=== PATIENT | male | born 1955 | race Caucasian/White ===

== ENCOUNTER 2016-08-10 19:24 | Emergency (ER) | payer OTHER ==
[2016-08-10 20:00] VITALS: BP 119/57
--- NOTE | 2016-08-10 20:18 | UC ---
HPI Febrile Illness - History of Current Complaint Chief Complaint: UCGeneralIllness Time Seen by Provider: 08/10/16 20:11 Hx Obtained From: Patient Onset/Duration: Started Days Ago - 1, Worse Since - today Timing: Constant Initial Severity: Mild Current Severity: Moderate Associated Signs and Symptoms: Chills, Dysuria - with frequency and urgency., Nausea, Other: - sphenoid sinus pain. - Risk Factors Pseudomonas Risk Factors: Negative Serious Bacterial Infection Risk Factors: Negative - Allergy/Home Medications Allergies/Adverse Reactions: Allergies Allergy/AdvReac Type Severity Reaction Status Date / Time Ampicillin Allergy Rash Verified 08/10/16 20:00 Carbamazepine Allergy Rash Verified 08/10/16 20:00 MRI CONTRAINDICATED-PACEMAKER Allergy Severe Unknown Uncoded 08/10/16 20:00 Reaction Details Home Medications: Home Medications Gabapentin TAB(NF) [Neurontin 600 mg TAB(NF)] 600 mg PO DAILY 08/10/16 [History Confirmed 08/10/16] PMH/Surg Hx/FS Hx/Imm Hx Endocrine/Hematology History: Reports: Hx Thyroid Disease - HYPO Cardiovascular History: Reports: Hx Pacemaker/ICD - MARCH 2013 - Surgical History Surgery Procedure, Year, and Place: PACEMAKER 03/2013 Infectious Disease History: No Infectious Disease History: Denies: Traveled Outside the [place] in Last 30 Days - Family History Known Family History: Positive: Hypertension, Diabetes Negative: Cardiac Disease - Social History Occupation: Retired Lives: With Family Alcohol Use: Occasionally Substance Use Type: Reports: None Smoking Status (MU): Never Smoked Tobacco Type: Cigars Have You Smoked in the Last Year: No Review of Systems Constitutional: Fever, Chills Genitourinary: Frequency, Urgency Neurological: Headache All Other Systems Reviewed And Are Negative: Yes Physical Exam Triage Information Reviewed: Yes Appearance: No Pain Distress, Well-Nourished, Ill-Appearing Vital Signs: Initial Vital Signs Temp 101.1 F 08/10/16 19:48 Pulse 94 08/10/16 19:48 Resp 12 08/10/16 19:48 BP 119/57 08/10/16 19:48 Pulse Ox 96 08/10/16 19:48 Vital Signs Reviewed: Yes Eye Exam: Other ENT: Positive: Pharynx normal, TMs normal Neck exam: Normal Respiratory Exam: Normal Cardiovascular Exam: Normal Abdomen Description: Positive: Nontender, No Organomegaly, Soft Musculoskeletal Exam: Normal Neurological Exam: Normal Psychological Exam: Normal Skin Exam: Normal Course/Dx - Febrile Illness Differential Diagnoses: Abd. Infection, Bacteremia, Pyelonephritis - Diagnoses Clinic Provider Diagnoses: Acute prostatitis Discharge - Discharge Plan Condition: Stable Disposition: HOME Prescriptions: Phenazopyridine 200 mg (NF) [Pyridium 200 MG tab] 200 mg PO TID PRN #6 tab PRN Reason: Spasms - Bladder Sulfamethox/Trimethoprim DS* [Bactrim DS 800/160 TAB*] 1 tab PO BID #20 tab
[2016-08-10] MEDS ORDERED: Sulfamethox/Trimethoprim DS 800/160* TAB PO ONE (20:24)
[2016-08-10] MEDS ORDERED: Phenazopyridine TAB* 100 MG PO ONE (20:24)
[2016-08-10] MEDS: Ondansetron ODT TAB* 4 MG PO ONE (21:12)
== END 2016-08-10 21:18 | disposition home or self-care (01) ==
LOC: UCCORT 19:24
DX: N41.0 Acute prostatitis (principal); E03.9 Hypothyroidism, unspecified; Z95.0 Presence of cardiac pacemaker; Z88.1 Allergy status to other antibiotic agents; Z88.8 Allergy status to other drugs, medicaments and biological substances
CPT/HCPCS: 81003; 87086; 99213; A9270-GY; G0463

== ENCOUNTER 2017-08-21 07:37 | Emergency (ER) | payer OTHER ==
[2017-08-21 07:54] VITALS: BP 122/75
--- NOTE | 2017-08-21 08:01 | UC ---
Skin Complaint HPI - HPI Summary HPI Summary: PATIENT REMOVED A DEER TICK FROM HIS RIGHT UPPER THIGH AREA THIS MORNING. THINKS IT WAS BEEN ATTACHED FOR 36-48 HOURS. - History of Current Complaint Chief Complaint: UCGeneralIllness Time Seen by Provider: 08/21/17 07:54 Stated Complaint: TICK Hx Obtained From: Patient Onset Severity: Mild Current Severity: Mild Pain Intensity: 0 Pain Scale Used: 0-10 Numeric Location: Discrete - RIGHT GROIN Character: Redness Aggravating Factor(s): Nothing Alleviating Factor(s): Nothing Associated Signs & Symptoms: Positive: Negative - Allergy/Home Medications Allergies/Adverse Reactions: Allergies Allergy/AdvReac Type Severity Reaction Status Date / Time ampicillin Allergy Rash Verified 08/21/17 07:58 carbamazepine Allergy Rash Verified 08/21/17 07:58 MRI CONTRAINDICATED-PACEMAKER Allergy Severe Unknown Uncoded 08/21/17 07:54 Reaction Details environmental Allergy Congestion Uncoded 08/21/17 07:54 Review of Systems Constitutional: Negative Skin: Other - ERYTHEMA AT TICK BITE SITE Respiratory: Negative Cardiovascular: Negative Gastrointestinal: Negative All Other Systems Reviewed And Are Negative: Yes PMH/Surg Hx/FS Hx/Imm Hx - Additional Past Medical History Additional PMH: TRIGEMINAL NEURALGIA Endocrine History: Hypothyroidism Cardiovascular History: Cardiac Disease - PACEMAKER - Surgical History Surgical History: Yes Surgery Procedure, Year, and Place: PACEMAKER 03/2013 - Family History Known Family History: Positive: Diabetes Negative: Cardiac Disease, Hypertension - Social History Alcohol Use: Rare Substance Use Type: None Smoking Status (MU): Former Smoker Type: Cigars Have You Smoked in the Last Year: No Physical Exam Triage Information Reviewed: Yes Appearance: Well-Appearing, No Pain Distress, Well-Nourished Vital Signs: Initial Vital Signs Temp 97.5 F 08/21/17 07:48 Pulse 54 08/21/17 07:48 Resp 16 08/21/17 07:48 BP 122/75 08/21/17 07:48 Pulse Ox 100 08/21/17 07:48 Vital Signs Reviewed: Yes Eyes: Positive: Conjunctiva Clear ENT: Positive: Hearing grossly normal Neck: Positive: Supple Respiratory: Positive: No respiratory distress, No accessory muscle use Cardiovascular: Positive: Pulses Normal Abdomen Description: Positive: Soft Musculoskeletal: Positive: No Edema Neurological: Positive: Alert Psychological: Positive: Age Appropriate Behavior Skin: Positive: Other - 2CM AREA OF ERYTHEMA SURROUNDING TICK BITE SITE RIGHT UPPER THIGH. Course/Dx - Diagnoses Provider Diagnoses: TICK BITE, LYME PEP Discharge - Sign-Out/Discharge Documenting (check all that apply): Discharge/Admit/Transfer - Discharge Plan Condition: Stable Disposition: HOME Patient Education Materials: Tick Bite (ED) Referrals: Yash Bush MD [Primary Care Provider] - If Needed Additional Instructions: TICK BITE PROPHYLAXIS You received 200mg of doxycycline for prophylaxis against Lyme disease. The Infectious Disease Society of [place] (IDSA) does not generally recommend antimicrobial prophylaxis for prevention of Lyme disease after a recognized tick bite. However, in areas that are highly endemic for Lyme disease, a single dose of doxycycline may be offered to adult patients (200 mg) who are not and to children older than 8 years of age (4 mg/kg up to a maximum dose of 200 mg) when all of the following circumstances exist: CRITERIA FOR RECEIVING PROPHYLACTIC TREATMENT FOR LYME DISEASE 1) TICK ATTACHED FOR AT LEAST 36 HRS 2) TICK IS AN ADULT OR [place] DEER TICK 3) YOU LIVE IN AN AREA WHERE LYME DISEASE IS PREVALENT (i.e., [place], [place], [place], , [place] , [place], [place], [place], [place], [place], [place], [place], [place], [place]) 4) YOU HAVE NO CONTRAINDICATION TO THE MEDICATION (DOXYCYCLINE) 5) PROPHYLAXIS IS BEGUN WITHIN 72 HRS OF TICK REMOVAL YOUR CHANCES OF DEVELOPING LYME DISEASE ARE EXTREMELY SMALL. BE VIGILANT OF YOUR SYMPTOMS AND DON'T HESITATE TO GET SEEN AGAIN IF YOU DEVELOP UNEXPLAINED FEVER, HEADACHE, JOINT PAIN, BODY ACHES, RASH OR ANY OTHER CONCERNING SYMPTOMS. Antibiotic treatment following a tick bite is not recommended as a means to prevent anaplasmosis, babesiosis, ehrlichiosis, or [place] spotted fever. There is no evidence this practice is effective, and it may simply delay onset of disease. Instead, persons who experience a tick bite should be alert for symptoms suggestive of tickborne illness and consult a physician if fever, rash, or other symptoms of concern develop. - Billing Disposition and Condition Condition: STABLE Disposition: HOME
[2017-08-21] MEDS ORDERED: DOXYcycline CAP(*) 100 MG PO ONE (08:03)
== END 2017-08-21 08:12 | disposition home or self-care (01) ==
LOC: UCCORT 07:37
DX: S70.361A Insect bite (nonvenomous), right thigh, initial encounter (principal); Z88.0 Allergy status to penicillin; Z88.8 Allergy status to other drugs, medicaments and biological substances; Z91.048 Other nonmedicinal substance allergy status; Z87.891 Personal history of nicotine dependence; A69.20 Lyme disease, unspecified; W57.XXXA Bitten or stung by nonvenomous insect and other nonvenomous arthropods, initial encounter; Y92.9 Unspecified place or not applicable
CPT/HCPCS: 99212; A9270-GY; G0463

== ENCOUNTER 2018-08-19 10:08 | Emergency (ER) | payer MEDICARE, OTHER ==
--- OUTSIDE RECORDS SUMMARY | 2018-08-19 10:29 | XMS REPORT | Continuity of Care Document ---
:1955 External Reference #:[id number] Author Name Ruth Matute M.D. Address [address] [place] [address] Care Team Providers Name Role Phone Yash Bush MD Care Team Information Roll Icer Machine Unavailable Yash Bush MD Primary Care Physician Unavailable Payers Date Identification Numbers Payment Provider Subscriber Effective: 2018 Policy Number: [id number] Medicare Yo Oleary PayID: [id number] [address] [place] [address] Policy Number: [id number] Lifetime Benefit Solution Yo Oleary PayID: [id number] [address] [address] [place] [address] Family History Date Family Member(s) Observation Comments General Pacemaker Father Alive Father Colon Cancer Father Skin Cancer Father macular degeneration Father wears glasses Mother Dementia Mother due to Stroke () - age 88 Mother wore glasses First Son Alive First Son 33 First Son No Current Problems First Daughter Alive First Daughter 35 First Daughter No Current Problems First Brother Cancer in remission 10 years First Brother Alive First Sister Alive First Sister Cancer in remissision 15 years Second Sister Cancer Social History Type Date Description Comments Sex Unknown Marital Status 38 years Lives With Diet Patient follows no dietary restrictions Occupation Retired Design Draftsman Work Status Retired ADL's/IADL's Independent with all ADL's Tobacco Use Start: Unknown Never Smoked Cigarettes ETOH Use Drinks 6 Alcoholic Beverages Per Week ETOH Use Rarely consumes alcohol 08/05/18 Tobacco Use Start: Unknown Patient has never smoked Recreational Drug Use Never Used Drugs Smoking Status Reviewed: 07/29/18 Patient has never smoked Exercise Type/Frequency Exercises regularly Allergies, Adverse Reactions, Alerts Active Allergies Reaction Severity Comments Date Ampicillin Tegretol Amoxicillin 01/02/2016 Medications Active Medications SIG Qnty Indications Ordering Provider Date Levothyroxine Sodium po qd Unknown 137mcg Tablets Gabapentin take one tablet Unknown 600mg Tablets by mouth three times a day History Medications Ofloxacin 1 drop left 1units S05.02xA Jose Raul Smith, 12/17/2017 - (Ophthalmic) eye 3 times Unknown 0.3% daily for 3 Solution days Gabapentin 1 po as needed 90caps Unknown - 300mg 01/02/2016 Capsules Synthroid po qd Unknown - 100mcg Unknown Tablets Aspir-81 1 po qd 120tabs Unknown - 81mg Tablets Unknown DR Terbinafine HCL 1 by mouth Unknown - 250mg every day Unknown Tablets Vital Signs Date Vital Result Comment 08/05/2018 3:19pm BP Systolic 109 mmHg BP Diastolic 63 mmHg Body Temperature 96.9 F Tympanic Heart Rate 67 /min Respiratory Rate 16 /min Height 71 inches 5'11" Weight 156.00 lb BMI (Body Mass Index) 21.8 kg/m2 BSA (Body Surface Area) 1.90 m2 Garrison body weight in kilograms 78 kg O2 % BldC Oximetry 98 % Pain Level 0 04/06/2018 10:21am BP Systolic Sitting Left Arm 108 mmHg BP Diastolic Sitting Left Arm 60 mmHg Respiratory Rate 16 /min Height 71 inches 5'11" Weight 154.00 lb BMI (Body Mass Index) 21.5 kg/m2 BSA (Body Surface Area) 1.89 m2 Garrison body weight in kilograms 78 kg O2 Saturation Level with Exercise 97 % 12/22/2017 8:58am BP Systolic 129 mmHg BP Diastolic 94 mmHg Heart Rate 62 /min Height 71 inches 5'11" Weight 71.00 lb BMI (Body Mass Index) 9.9 kg/m2 BSA (Body Surface Area) 1.36 m2 Garrison body weight in kilograms 78 kg O2 % BldC Oximetry 99 % 03/20/2017 11:40am BP Systolic Sitting Left Arm 124 mmHg BP Diastolic Sitting Left Arm 76 mmHg Heart Rate 67 /min Respiratory Rate 14 /min Height 71 inches 5'11" 71 Weight 162.00 lb BMI (Body Mass Index) 22.6 kg/m2 BSA (Body Surface Area) 1.93 m2 Garrison body weight in kilograms 78 kg 11/06/2015 8:16am BP Systolic Sitting Right Arm 116 mmHg BP Diastolic Sitting Right Arm 78 mmHg Heart Rate 56 /min Respiratory Rate 16 /min Height 71 inches 5'11" 71 Weight 154.00 lb BMI (Body Mass Index) 21.5 kg/m2 BSA (Body Surface Area) 1.89 m2 11/03/2013 11:04am BP Systolic Sitting Right Arm 130 mmHg BP Diastolic Sitting Right Arm 72 mmHg Heart Rate 78 /min Respiratory Rate 16 /min Height 71 inches 5'11" 71 Weight 154.00 lb BMI (Body Mass Index) 21.5 kg/m2 BSA (Body Surface Area) 1.89 m2 04/27/2013 1:28pm BP Systolic Sitting Right Arm 104 mmHg BP Diastolic Sitting Right Arm 68 mmHg Heart Rate 65 /min Respiratory Rate 16 /min Height 71 inches 5'11" 71 Weight 164.00 lb BMI (Body Mass Index) 22.9 kg/m2 BSA (Body Surface Area) 1.94 m2 Results Test Date Facility Test Result H/L Range Note Urine Dipstick 08/05/2018 [facility] Ua Color Yelllow Yellow Ua Clarity Clear Clear Ua Leuko Negative Negative Ua Nitrite Negative Negative Ua Urobilinogen 0.2 0.2 - 1.0 E.U./dL Ua Protein Negative Negative Ua PH 6.0 Low 6.5-7.5 Ua Blood Negative Negative Ua Specific Johnson 1.030 1.010-1.030 Ua Ketones Negative Negative Ua Bilirubin Negative Negative Ua Glucose Negative Negative Lab Results 07/13/2018 N2N/CCD Import TSH 0.04 uIU/mL Low 0.35-4.94 1 Cholesterol 217 mg/dL High 50-199 Triglycerides 74 mg/dL 30-200 HDL 59 mg/dL 29-71 2 Chol/ HDL Ratio 3.7 ratio Low 4-6.7 VLDL 15 mg/dL 2-29 LDL (Calc) 143 mg/dL High 20-99 3 Lab Results 07/13/2018 N2N/CCD Import Cholesterol 217 mg/dL High 50-199 Triglycerides 74 mg/dL 30-200 HDL 59 mg/dL 29-71 4 Chol/ HDL Ratio 3.7 ratio Low 4-6.7 VLDL 15 mg/dL 2-29 LDL (Calc) 143 mg/dL High 20-99 5 Basic (BMP) 07/13/2018 N2N/CCD Import Sodium 142 mmol/L 135-146 6 Potassium 4.1 mmol/L 3.5-5.2 Chloride# 104 mmol/L 97-110 7 Carbon Dioxide 31 mmol/L 24-34 Glucose 97 mg/dL 70-105 BUN 13 mg/dL 6-26 Creatinine 0.9 mg/dL 0.5-1.4 Calcium 9.6 mg/dL 8.5-10.2 Non [place] Egfr >60 8 [place] Egfr >60 9 Anion Gap 7 mmol/L 5-15 10 CBC with Auto Diff-fcmg 07/13/2018 N2N/CCD Import WBC 5.7 K/uL 4.1-11 RBC 5.22 M/uL 4.6-6.1 Hemoglobin 15.0 gm/dL 13.5-18 Hematocrit 45.3 % 41-53 MCV 86.8 fL 80-97 MCH 28.8 pg 27-32 MCHC 33.2 g/dL 32-36 RDW 13.6 % 11.5-14.5 PLT Count 246 K/ul 140-400 MPV 9.1 FL 7.1-10.7 Neutrophil 47.0 % 35-75 Lymphocyte 42.5 % 16-52 Monocyte 8.3 % 2-10 Eosinophil 1.8 % 0-5 Basophil 0.4 % 0-4 Abs Neutrophils 2.7 K/uL 2.1-8 Abs Lymphocytes 2.4 K/uL 0.8-5.5 Abs Monocytes 0.5 K/uL 0.1-1 Abs Eosinophils 0.1 K/uL 0-0.5 Abs Basophils 0.0 K/uL 0-0.3 1 07/16 preOV 2 Per NCEP ATP III Guidelines: Results lower than 40 mg/dL are suggestive of increased risk for coronary artery disease. Results > or=to 60 mg/dL are considered a negative risk factor. 3 Per NCEP ATP III Guidelines: Normal Population <130 Patients with medical conditions: CHD/DM Optimal: <100 Borderline high: 130-159 High: 160-189 Very high: >189 4 Per NCEP ATP III Guidelines: Results lower than 40 mg/dL are suggestive of increased risk for coronary artery disease. Results > or=to 60 mg/dL are considered a negative risk factor. 5 Per NCEP ATP III Guidelines: Normal Population <130 Patients with medical conditions: CHD/DM Optimal: <100 Borderline high: 130-159 High: 160-189 Very high: >189 6 Updated reference range on new analyzer 7 Per NCEP ATP III Guidelines: Results lower than 40 mg/dL are suggestive of increased risk for coronary artery disease. Results > or=to 60 mg/dL are considered a negative risk factor. 8 Concerning GFR Guidelines: Normal function or mild renal disease, if clinically at risk: >/=60 mL/min Moderately decreased: 30-59 Severely decreased: 15-29 Renal failure: <15 Glomerular Filtration Rate (GFR) is estimated based on the MDRD equation, which assumes a steady state for creatinine as recommended by the National Kidney Disease Education Program in conjunction with the National Institutes of Health and the National Kidney Foundation. Clinical conditions in which it may be necessary to measure GFR by using clearance methods include extremes of age and body size, severe malnutrition or obesity, diseases of skeletal muscle, paraplegia or quadriplegia, vegetarian diet, rapidly changing kidney function, and calculation of the dose of potentially toxic drugs that are excreted by the kidneys. 9 Concerning GFR Guidelines for Americans: Normal function or mild renal disease, if clinically at risk: >/=60 mL/min Moderately decreased: 30-59 Severely decreased: 15-29 Renal failure: <15 10 Updated Reference Range Procedures Date Code Description Status 08/05/2018 03341 Pacemaker/Cardio-Defibrillator Remote Data Acquistion Completed 08/05/2018 34547 Remote Interrigation Report Interr. Single, Dual Or Completed Multiple Lead 04/06/2018 16614 EKG-Tracing And Report Completed 02/02/2018 25727 Dual Pacemaker Programming Anayisis, Review And Report Completed 12/17/2017 39227 Eye Exam Est Patient Comprehensive Completed 03/20/2017 03155 EKG-Tracing And Report Completed 03/19/2017 85627 Eye Exam Est Patient Comprehensive Completed 03/17/2017 91383 Dual Pacemaker Programming Anayisis, Review And Report Completed 09/18/2016 83395 Remote Interrigation Report Interr. Single, Dual Or Completed Multiple Lead 09/18/2016 81744 Remote Interrigation Report Interr. Single, Dual Or Completed Multiple Lead 09/18/2016 89262 Pacemaker/Cardio-Defibrillator Remote Data Acquistion Completed 09/18/2016 31915 Pacemaker/Cardio-Defibrillator Remote Data Acquistion Completed 03/18/2016 21118 Dual Pacemaker Programming Anayisis, Review And Report Completed 03/18/2016 81964 Dual Pacemaker Programming Anayisis, Review And Report Completed 02/27/2016 66147 Eye Exam Est Patient Intermediate Completed 01/02/2016 97628 Eye Exam New Patient Comprehensive Completed 11/06/2015 38428 EKG-Tracing And Report Completed 09/18/2015 58197 Dual Pacemaker Programming Anayisis, Review And Report Completed 09/18/2015 27903 Dual Pacemaker Programming Anayisis, Review And Report Completed 03/13/2015 25841 Dual Pacemaker Programming Anayisis, Review And Report Completed 03/13/2015 61608 Dual Pacemaker Programming Anayisis, Review And Report Completed 09/12/2014 43106 Dual Pacemaker Programming Anayisis, Review And Report Completed 09/12/2014 38773 Dual Pacemaker Programming Anayisis, Review And Report Completed 03/14/2014 25069 Dual Pacemaker Programming Anayisis, Review And Report Completed 03/14/2014 24259 Dual Pacemaker Programming Anayisis, Review And Report Completed 11/15/2013 48144 Dual Pacemaker Programming Anayisis, Review And Report Completed 11/15/2013 53966 Dual Pacemaker Programming Anayisis, Review And Report Completed 06/28/2013 02174 Dual Pacemaker Programming Anayisis, Review And Report Completed 06/28/2013 82024 Dual Pacemaker Programming Anayisis, Review And Report Completed 05/17/2013 20478 Dual Pacemaker Programming Anayisis, Review And Report Completed 05/17/2013 75951 Dual Pacemaker Programming Anayisis, Review And Report Completed 04/27/2013 40497 EKG-Tracing And Report Completed 04/12/2013 24209 Insert or replace pacemaker with electrodes, atrial & Completed ventricle 04/12/2013 76276 Anesthesia, Pacemaker Insertion Completed Encounters Type Date Location Provider Dx Diagnosis Office Visit 08/05/2018 Urology Manny Gaxiola, Z12.5 Encounter for 3:00p PA screening for malignant neoplasm of prostate 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.41 Spermatocele of epididymis, single Office Visit 04/06/2018 10:15a Cardiology Office Lucas Dudley, R00.1 BradycardiaMD unspecified Z95.0 Presence of cardiac pacemaker Office Visit 12/22/2017 8:45a Podiatry Office Dariusz Lucero, L60.0 Ingrowing nail DPM M79.675 Pain in left toe(s) Office Visit 03/20/2017 11:40a Cardiology Office [place], R00.1 Bradycardia , MARIZA Elizabeth unspecified Z95.0 Presence of cardiac pacemaker R42 Dizziness and giddiness Office Visit 03/12/2016 Ophthalmology Jose Raul Smith, 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, Dysrhythmia Other M.D. Office Visit 04/11/2013 10:35a Cardiology Office Tyler Quiros 427.[place] Cardiac MD Corrien, PhD Dysrhythmia Other Plan of Treatment Future Appointment(s):08/08/2019 1:00 pm - Manny Gaxiola PA at [email or web address] 8:45 am - Rubina Corcoran PA at Cardiology [facility]5409/29/2018 1:00 pm - Lucas Dudley MD at Cardiology [facility]208/05/2018 - Manny Gaxiola, PAZ12.5 Encounter for screening for malignant neoplasm of prostateComments:We will get a copy of his PSA from his primary care office and follow-up with digital rectal [id number] Spermatocele of epididymis, singleNew Xrays:US Testicular Sonogram, Ordered: 08/05/18Comments:Scrotal ultrasound will be ordered as it has not been done a number of years for baseline. Patient will call me to review these once done
[2018-08-19 10:46] VITALS: BP 123/73
--- NOTE | 2018-08-19 11:17 | ED ---
Upper Extremity Pain - HPI Summary HPI Summary: 63 yr old male with the complaint of bilateral wrist pain. About a month ago he had left wrist with some swelling, and he wore a wrist brace and feels better. But if he does labor the wrist will bother him. He has pain to the right wrist as well now at times with intermittent swelling and worse with movement. Now no swelling to his wrists. He has no other complaints. - History of Current Complaint Chief Complaint: UCUpperExtremity Stated Complaint: BILATERAL WRIST PAIN Time Seen by Provider: 08/19/18 11:03 - Allergies/Home Medications Allergies/Adverse Reactions: Allergies Allergy/AdvReac Type Severity Reaction Status Date / Time ampicillin Allergy Rash Verified 08/19/18 10:47 carbamazepine Allergy Rash Verified 08/19/18 10:47 Home Medications: Home Medications Gabapentin 900 mg PO TID 08/19/18 [History Confirmed 08/19/18] Levothyroxine TAB* [Synthroid TAB*] 125 mcg PO DAILY 08/19/18 [History Confirmed 08/19/18] PMH/Surg Hx/FS Hx/Imm Hx Endocrine/Hematology History: Reports: Hx Thyroid Disease - HYPO Cardiovascular History: Reports: Hx Pacemaker/ICD - MARCH 2013 - Surgical History Surgery Procedure, Year, and Place: PACEMAKER 03/2013 Infectious Disease History: No Infectious Disease History: Denies: Traveled Outside the [place] in Last 30 Days - Family History Known Family History: Positive: Diabetes Negative: Cardiac Disease, Hypertension - Social History Lives: With Family Alcohol Use: Rare Substance Use Type: Reports: None Smoking Status (MU): Never Smoked Tobacco Type: Cigars Have You Smoked in the Last Year: No Review of Systems Constitutional: Negative Positive: Other - wrist pain bilateral All Other Systems Reviewed And Are Negative: Yes Physical Exam Triage Information Reviewed: Yes Vital Signs On Initial Exam: Initial Vitals Temp Pulse Resp BP Pulse Ox 98.2 F 55 16 123/73 99 08/19/18 10:32 08/19/18 10:32 08/19/18 10:32 08/19/18 10:32 08/19/18 10:32 Vital Signs Reviewed: Yes Appearance: Positive: Well-Appearing, No Pain Distress Skin: Positive: Warm, Skin Color Reflects Adequate Perfusion Head/Face: Positive: Normal Head/Face Inspection Eyes: Positive: Normal, EOMI ENT: Positive: Normal ENT inspection Neck: Positive: Nontender Respiratory/Lung Sounds: Positive: Clear to Auscultation, Breath Sounds Present Cardiovascular: Positive: RRR, Pulses are Symmetrical in both Upper and Lower Extremities, Other - pacemaker left upper chest Abdomen Description: Negative: Distended Musculoskeletal: Positive: Strength/ROM Intact, Other - no effusion to the wrists, no focal tenderness either wrist, no erythema, no snuff box tenderness. Neurological: Positive: Sensory/Motor Intact, Alert, Oriented to Person Place, Time, CN Intact II-III, Speech Normal Psychiatric: Positive: Normal Diagnostics - Vital Signs Vital Signs Temp Pulse Resp BP Pulse Ox 08/19/18 10:32 98.2 F 55 16 123/73 99 - Laboratory Lab Statement: Any lab studies that have been ordered have been reviewed, and results considered in the medical decision making process. Course/Dx - Course Course Of Treatment: 63 yr old with bilateral wrist pain that wax and wanes, he is concerned about lyme and prior longstanding forestry and tick exposures. Lyme test sent. Will Rx with Doxy for 14 days, and he knows he should follow up with his primary doctor as soon as possible for further work up. The patient requested to be prescribed the doxy pending test result. - Diagnoses Provider Diagnoses: Bilateral wrist pain Discharge - Sign-Out/Discharge Documenting (check all that apply): Patient Departure All imaging exams completed and their final reports reviewed: Yes - Discharge Plan Condition: Good Disposition: HOME Prescriptions: Doxycycline Monohydrate 100 mg PO BID #28 capsule Patient Education Materials: Swollen Joint (ED), Arthralgia (ED) Referrals: Yash Bush MD [Primary Care Provider] - - Billing Disposition and Condition Condition: GOOD Disposition: Home
--- NOTE | 2018-08-20 18:47 | UC ---
- Progress Note Progress Note: Pt called to inquire if he needs to continue taking the antibiotic for lyme lyme IgG, IgM is positive -recommend he take entire 14 d course and f/u with PCP. sometimes requires 21 days -he should take probiotic daily while on abx. Course/Dx - Diagnoses Provider Diagnoses: Bilateral wrist pain Discharge - Sign-Out/Discharge Documenting (check all that apply): Post-Discharge Follow Up All imaging exams completed and their final reports reviewed: Yes - Discharge Plan Condition: Good Disposition: HOME Prescriptions: Doxycycline Monohydrate 100 mg PO BID #28 capsule Patient Education Materials: Arthralgia (ED), Swollen Joint (ED) Referrals: Yash Bush MD [Primary Care Provider] - - Billing Disposition and Condition Condition: GOOD Disposition: Home
== END 2018-08-19 12:55 | disposition home or self-care (01) ==
LOC: UCCORT 10:08
DX: M25.531 Pain in right wrist (principal); M25.532 Pain in left wrist
CPT/HCPCS: 36415; 86617; 86618; 99212; G0463